=== PATIENT | female | born 1965 | race Caucasian/White ===

== ENCOUNTER 2019-12-26 12:27 | Emergency (ER) | payer OTHER ==
[~2019-12-26] VITALS: Ht 170.2 cm; Wt 61.0 kg
--- NOTE | 2019-12-26 12:35 | NUR ---
n/a x1 pt in restroom per family.
[2019-12-26 12:38] VITALS: BP 120/62
--- NOTE | 2019-12-26 12:47 | NUR ---
FIRST CONTACT WITH PT. PT STATES "I CAME HERE FROM [place] AND I'M OUT OF ADDERAL" PT DENIES ANY SYMPTOMS AT THIS TIME. PT'S AOX4. RESPS EVEN AND UNLABORED.
--- NOTE | 2019-12-26 13:24 | NUR ---
PT REFUSED TO SIGN ON ALL DC PAPERS. PT WAS NOT ABLE TO PROVIDE ANY MED REFILL AT THIS TIME AT [place].
== END 2019-12-26 13:26 | disposition home or self-care (01) ==
LOC: ED 13:20
DX: F90.9 Attention-deficit hyperactivity disorder, unspecified type (principal); Z76.0 Encounter for issue of repeat prescription; F17.210 Nicotine dependence, cigarettes, uncomplicated
CPT/HCPCS: 99281

== ENCOUNTER 2020-02-02 18:01 | Emergency (ER) | payer SELFPAY ==
[~2020-02-02] VITALS: Ht 170.2 cm; Wt 61.8 kg
[2020-02-02 18:04] VITALS: BP 124/71
--- NOTE | 2020-02-02 19:51 | NUR ---
PATENT PARALEGAL: NIL X 1 WHEN CALLED FOR ROOM.
--- NOTE | 2020-02-02 20:35 | NUR ---
COOKER CLEANER: NIL X 2 WHEN CALLED FOR ROOM.
== END 2020-02-02 20:48 | disposition left against medical advice (07) ==
LOC: ED 20:40
DX: F41.9 Anxiety disorder, unspecified (principal); Z76.0 Encounter for issue of repeat prescription
CPT/HCPCS: 99281

== ENCOUNTER 2020-04-11 10:47 | Emergency (ER) | payer SELFPAY ==
[~2020-04-11] VITALS: Ht 170.2 cm; Wt 61.0 kg
[2020-04-11 10:50] VITALS: BP 115/61
--- NOTE | 2020-04-11 12:26 | NUR ---
PA IN TO REVIEW POC WITH PT, ORTHO SURGEON HOLDING. PT REFUSING SURGERY, ANXIOUS AND NONRECEPTIVE TO PA OR ORTHO RECOMMENDATIONS. PT STATES SHE'S ON HOLD WITH [facility] IN [place] TO GET SECOND OPINION.
--- NOTE | 2020-04-11 13:04 | NUR ---
PT NOW STATING TO DR GREENFIELD SHE WILL LET ORTHO SEE HER IN ED. CONFIRMATION BY THIS RN. INFRASTRUCTURE ARCHITECT IN TO SPLINT PT.
--- NOTE | 2020-04-11 13:11 | NUR ---
PT REFUSING STAFF IN TO SPLINT ARM. TOLD CONTINGENTS SUPERVISOR AND THIS RN, "GET OUT, I NEED 10 MINUTES OF PRIVACY". PT ON PHONE. PT GIVEN 10 MINUTES, AND THEN ASKED IF WE CAN PLACE SPLINT. PT STATES "I'M THINKING OF GETTING A FLIGHT OUT OF [place] RIGHT NOW, ALL YOU WANT TO DO IS SHOOT ME UP WITH FENTANYL". PT ASSURED NO MEDS TO BE GIVEN. PT THEN STATES "YOU GUYS ARE ALL UNPROFESSIONAL, I'VE BEEN WAITING FOR YOU ALL DAY, YOU DON'T WANT TO TREAT ME". THIS RN STATES WE WANT TO PLACED SPLINT, CONTINGENTS SUPERVISOR STATES SAME AND ASKED IF WE CAN DO IT NOW. PT THEN SAYS, "I DON'T FEEL COMFORTABLE WITH THAT, I WANT TO TALK WITH " ERP INFORMED AND REQUESTS COMPATIBILITY TEST ENGINEER TO GO IN AND SPEAK WITH PT. COMPATIBILITY TEST ENGINEER INFORMED AND IN TO SPEAK WITH PT.
--- NOTE | 2020-04-11 13:19 | NUR ---
AFTER WAITING FOR PATIENT TO GET OFF HER PHONE I ASKED IF SHE WAS READY FOR A SPLINT. SHE REPLIED "YOU GUYS ARE BEING UNPROFESSIONAL IF YOU DONT WANT TO TREAT ME JUST LET ME GO." I TOLD HER "I WOULD LOVE TO SPLINT YOUR ARM, MAY I?". SHE THEN REFUSED THE SPLINT.
--- NOTE | 2020-04-11 13:21 | NUR ---
OUMAR WITH EXERCISE INSTRUCTOR TO SPEAK WITH PT.
--- NOTE | 2020-04-11 13:25 | NUR ---
WRAPPER OPERATOR: SPOKE WITH PATIENT AT LENGTH WITH CLEO OSEGUERA. PT STATES SHE HAS CONCERNS REGARDING SURGERY. EXPLAINED AT LENGTH ANASTHESIOLOGIST WOULD NEED TO SPEAK WITH HER REGARDING SURGERY. INCREASE EMOTIONAL SUPPORT GIVEN TO PT. PT REQUESTS TO GO SMOKING PRIOR TO SURGERY. EXPLAINED THAT [facility] IS A NO SMOKING FACILITY.
--- NOTE | 2020-04-11 13:33 | NUR ---
WITHIN MINUTES OF SW AND PATIENT SERVICE TECHNICIAN PST LEAVING ROOM, PT HEARD SCREAMING AND CRYING IN ROOM. PATIENT SERVICE TECHNICIAN PST AND SW IN TO SPEAK WITH PT AGAIN.
--- NOTE | 2020-04-11 13:38 | NUR ---
PT LEFT ED ROOM, YELLING AND SCREAMING AT STAFF AND VISITORS. PT YELLING "YOU ARE ALL PROSTITUTES" NUMEROUS TIMES. PT SEEN EXITING ED WR DOORS STILL YELLING. SECURITY CALLED AND PT ESCORTED OFF OF PROPERTY.
== END 2020-04-11 13:45 | disposition left against medical advice (07) ==
LOC: ED 12:09
DX: S52.351A Displaced comminuted fracture of shaft of radius, right arm, initial encounter for closed fracture (principal); S52.031A Displaced fracture of olecranon process with intraarticular extension of right ulna, initial encounter for closed fracture; F17.200 Nicotine dependence, unspecified, uncomplicated; V49.40XA Driver injured in collision with unspecified motor vehicles in traffic accident, initial encounter; Y93.89 Activity, other specified; Y92.488 Other paved roadways as the place of occurrence of the external cause; Y99.8 Other external cause status
CPT/HCPCS: 99284

== ENCOUNTER 2020-05-04 16:33 | Emergency (ER) | payer OTHER ==
[~2020-05-04] VITALS: Ht 170.2 cm; Wt 60.9 kg
--- NOTE | 2020-05-04 17:50 | NUR ---
SURVEILLANCE MANAGER: PT WALKED BACK FROM LOBBY TO ROOM AT THIS TIME.
--- NOTE | 2020-05-04 18:01 | NUR ---
WHEN ASKED WHAT BRINGS PT THE THE HOSPITAL, PT STATES "ARE YOU CRAZY" "ARE YOU ALL CRAZY" THEN BEGINS TO SOB. THIS RN LEFT RM, WILL ACCOMPANY ER PROVIDER WITH ELISE[facility]
--- NOTE | 2020-05-04 18:50 | NUR ---
LATE ENTRY: BEDSIDE REPORT FROM CARMINE PRABHAKAR. PT CARE TRANSFERRED AT THIS TIME. PT STATES SHE CAME IN TODAY DUE TO BIALTERAL LOWER EXTREMITY SWELLING. PT STATES THEY ARE PAINFUL AND THAT SHE CANT WALK. PT ATTRIBUTES BEING UNABLE TO WALK ON BLISTERS ON BILATERAL FEET. BLISTERS APPEAR TO BE RUPTURED AND HEALING. GROSS NEURO INTACT, PULSES 2+, CMS INTACT. US AT BS FOR EVAL. PT NAD, VSS, P/W/D. PT PLACED ON BP/SPO2 MONITORING. WCTM.
[2020-05-04 19:19] LABS: ANION GAP 7 mmol/L (5-15); BASOPHILS # (AUTO) 0.07 x10^3/uL (0-0.1); BASOPHILS % (AUTO) 1 % (0-1); CALCIUM 8.2 mg/dL (8.5-10.1); CHLORIDE 108 mmol/L (98-107); CREATININE 0.63 mg/dL (0.55-1.02); EOSINOPHILS # (AUTO) 0.23 x10^3/uL (0-0.4); EOSINOPHILS % (AUTO) 3 % (1-7); LYMPHOCYTES # (AUTO) 1.99 x10^3/uL (1-3.4); LYMPHOCYTES % (AUTO) 26 % (22-44); MD NO; MEAN CORPUSCULAR HEMOGLOBIN 30.8 pg (27.0-34.8); MEAN CORPUSCULAR HGB CONC 32.7 g/dL (32.4-35.8); MEAN CORPUSCULAR VOLUME 94.2 fL (80-100); MEAN PLATELET VOLUME 9.2 fL (7.4-10.4); MONOCYTES # (AUTO) 0.83 x10^3/uL (0.2-0.8); MONOCYTES % (AUTO) 11 % (2-9); NEUTROPHILS # (AUTO) 4.44 x10^3/uL (1.8-6.8); NEUTROPHILS % (AUTO) 59 % (42-75); PLATELET COUNT 435 x10^3/uL (130-400); RED BLOOD COUNT 3.68 x10^6/uL (3.82-5.3); RED CELL DISTRIBUTION WIDTH 13.6 % (9.6-15.2)
--- NOTE | 2020-05-04 19:20 | NUR ---
PT RESTING IN [facility], WAITING FOR US RESULTS. WCTM. NAD, NO CHANGE IN CONDITION.
--- NOTE | 2020-05-04 20:39 | NUR ---
PT RESTING IN GURNEY, EYES CLOSED, NAD, WCTM. WAITING FOR PT TO WAKE UP TO DC.
[2020-05-04 20:43] VITALS: BP 89/52
[2020-05-04] MEDS ORDERED: NEOSPORIN OINT. PKT 1 PACKET ONE (20:47)
--- NOTE | 2020-05-04 20:49 | NUR ---
PATIENT REQUESTED HER FEET BE WRAPPED DUE TO PAIN. PATIENT STATED THAT SHE CAN NOT WALK. PATIENT CAN MOVE ALL EXTREMITIES WITHOUT COMPLICATIONS. PATIENT GIVEN SUPPLIES FOR SELF CARE FOR FEET.
--- NOTE | 2020-05-04 20:58 | NUR ---
PT BEGAN BECOMING AGGRESSIVE AND YELLING AT STAFF "I CANT FUCKING WALK!! WHAT THE FUCK DO YOU WANT ME TO FUCKING DO, [place] BEEN TO 5 HOSPITALS TO GET FUCKING TREATMENT AND NONE OF YOU HELP ME!!!", TECH BROUGHT PT WHEELCHAIR AND PT BEGAN TO YELL "WHY THE FUCK ARE YOU BEING SARCASTIC WITH ME? THIS IS FUCKING RIDICULOUS, I KNOW YOURE ALL FUCKING PROSTITUTES HERE ANYWAYS!". PT GIVEN SOCKS AND BREWING DIRECTOR DC PRESCRIPTIONS A SECOND TIME WITH PT. PT CRYING AND YELLING OUT INTO THE MAI.
== END 2020-05-04 20:51 | disposition home or self-care (01) ==
LOC: ED 18:52
DX: L03.115 Cellulitis of right lower limb (principal); L03.116 Cellulitis of left lower limb; F17.200 Nicotine dependence, unspecified, uncomplicated
CPT/HCPCS: 36415; 80048; 82040; 85025; 93970; 99284

== ENCOUNTER 2020-05-06 12:32 | Emergency (ER) | payer SELFPAY ==
[~2020-05-06] VITALS: Ht 170.2 cm; Wt 61.0 kg
[2020-05-06 12:42] VITALS: BP 99/55
--- NOTE | 2020-05-06 12:46 | NUR ---
PAYROLL AND BENEFITS ASSISTANT: UNABLE TO DO VA'S PT WEARS GLASSES AND DOES NOT HAVE THEM WITH HER.
--- NOTE | 2020-05-06 13:07 | NUR ---
pt asked commercial insurance underwriter if we could refill her rx that she recieved here at ER yesterday because "she has no money and want her infection to go away"
--- NOTE | 2020-05-06 14:28 | NUR ---
PT REFUSED ER CREAM MEDICATION AND LEFT ER
[2020-05-07] MEDS ORDERED: MUPIROCIN OINT 2%, 22GM TP SCH (09:00)
== END 2020-05-06 14:31 | disposition home or self-care (01) ==
LOC: ED 13:27
DX: L03.116 Cellulitis of left lower limb (principal); L03.115 Cellulitis of right lower limb
CPT/HCPCS: 99283

== ENCOUNTER 2020-05-10 19:57 | Emergency (ER) | payer SELFPAY ==
[~2020-05-10] VITALS: Ht 170.2 cm; Wt 58.5 kg
[2020-05-10 19:59] VITALS: BP 129/65
== END 2020-05-10 21:04 | disposition home or self-care (01) ==
LOC: ED 20:55
DX: S52.91XD Unspecified fracture of right forearm, subsequent encounter for closed fracture with routine healing (principal); S52.201D Unspecified fracture of shaft of right ulna, subsequent encounter for closed fracture with routine healing; M96.89 Other intraoperative and postprocedural complications and disorders of the musculoskeletal system; X58.XXXD Exposure to other specified factors, subsequent encounter
CPT/HCPCS: 99282